=== PATIENT | male | born 1970 ===

== ENCOUNTER 2018-07-31 01:47 | Emergency (ER) | payer OTHER ==
[2018-07-31 01:58] VITALS: BP 132/88; PULSE 80; TEMP 97.4; BMI 27.4
--- NOTE | 2018-07-31 02:06 | PDOC ---
History of Present Illness - General Chief Complaint: Pain Stated Complaint: PAIN Time Seen by Provider: 07/31/18 02:05 - History of Present Illness Initial Comments: This 48-year-old man with a history of hyperlipidemia and strong family history of coronary artery disease presents with episode of burning substernal chest pain that awakened him tonight. Patient states that approximately 1 AM, he is awakened feeling of burning in his mid chest. It appears to have resolved spontaneously after he sat up, lasting approximately 10-15 minutes. During that time, his gave him an aspirin tablet. He denies shortness of breath/ diaphoresis during the episode. He had mild nausea associated with the pain. He currently does not have any of this substernal pain. For the last 2 days, the patient has experienced pain with movement around the left scapula; he also has similar movement associated pain in the left upper anterior chest for the same period of time. Patient believes that the latter 2 areas of pain are secondary to carrying luggage during a business trip 3 days ago. Patient states that he had a cardiac stress test earlier this year which was reportedly normal. Cardiac risk factors: Positive hyperlipidemia/family history; no smoking/ hypertension/diabetes/obesity Patient does not have any risk factors for acute thromboembolic disease except for frequent air travel. His business trip 3 days ago was to [place] ( approximately 2 [address] ride). No history of lower extremity edema or pain.No FH of DVT/PE.No recent surgery/malignancy Past History - Past Medical History Allergies/Adverse Reactions: Allergies Allergy/AdvReac Type Severity Reaction Status Date / Time No Known Allergies Allergy Unverified 07/31/18 01:48 EST Home Medications: Ambulatory Orders Ezetimibe 10 mg PO DAILY 07/31/18 Rosuvastatin [Crestor -] 5 mg PO HS 07/31/18 COPD: No Hypercholesterolemia: Yes - Suicide/Smoking/Psychosocial Hx Smoking History: Never smoked Review of Systems - Review of Systems Able to Perform ROS?: Yes Comments:: 12 point review of systems is negative except for what is noted in the history of present illness *Physical Exam - Vital Signs Last Vital Signs Temp Pulse Resp BP Pulse Ox 97.4 F L 80 16 132/88 99 07/31/18 01:51 EST 07/31/18 01:51 EST 07/31/18 01:51 EST 07/31/18 01:51 EST 07/31/18 01:51 EST - Physical Exam Comments: GENERAL: Adult male, alert and oriented 3, in no acute distress HEAD: Normal with no signs of trauma. EYES: PERRLA, EOMI, sclera anicteric, conjunctiva clear. ENT: Ears normal, nares patent, oropharynx clear without exudates. Moist mucous membranes. NECK: Normal range of motion, supple without lymphadenopathy, JVD, or masses. LUNGS: Breath sounds equal, clear to auscultation bilaterally. No wheezes, and no crackles. CHEST WALL: No tenderness/crepitus HEART:Regular rate and rhythm, normal S1 and S2 without murmur, rub or gallop. ABDOMEN:.normal bowel sounds No guarding,tenderness or rebound.No masses No distention. EXTREMITIES: Normal range of motion, no edema. No clubbing or cyanosis. No erythema, or tenderness. NEUROLOGICAL: Cranial nerves II through XII grossly intact. Normal speech. No focal neurological deficits. MUSCULOSKELETAL: Back non-tender to palpation, no CVA tenderness SKIN: Warm, Dry, normal turgor, no rashes or lesions noted. 12 12-lead electrocardiogram is performed interpreted by me: This reveals normal sinus rhythm at 76 bpm; wave forms, axis, intervals are all normal. No evidence of acute ST or T-wave abnormalities. No evidence of cardiac arrhythmia. Heart Score/ECG Review - History History: Slightly suspicious - Electrocardiogram EKG: Normal - Age Age: 45-65 - Risk Factors Risk Factors Heart Score: Yes Hx Hypercholesterolemia, Yes Positive family hx of cardiac disease Based on the list above the patient has:: 1-2 risk factors - Troponin Troponin: </= normal limit - Score Heart Score - Total: 2 ED Treatment Course - LABORATORY CBC & Chemistry Diagram: 07/31/18 02:55 07/31/18 02:55 Medical Decision Making - Medical Decision Making Patient continued to be comfortable throughout the night without recurrence of any chest pain or development of new symptoms. Blood samples were considerably lipemic according to lab personnel. Therefore, interpretation of the results were delayed. However, troponin was not elevated and the remainder of his labs were not significantly abnormal (calcium was 7.2 ; calcium levels are known to be distorted in lipemic samples) Patient was discharged with instructions to return to the emergency room if he had recurrent chest pain or develops shortness of breath/diaphoresis/nausea or palpitations. He will follow-up with his general doctor. He was given referral information for business segment manager on-call (Ailyn gonzalez) for further follow-up 08/01/18 00:41 *DC/Admit/Observation/Transfer Diagnosis at time of Disposition: Atypical chest pain - Discharge Dispostion Disposition: HOME Condition at time of disposition: Stable - Referrals - Patient Instructions Printed Discharge Instructions: DI for Atypical Chest Pain Additional Instructions: Continue medications as prescribed Return to ER if you have persistent chest pain/shortness of breath/palpitations Follow-up with your general doctor/enrollment manager or consult business segment manager as discussed - Post Discharge Activity
[2018-07-31 04:24] LABS: EOS % 6.2 % (0-4.5); HEMOGLOBIN 15.6 GM/dL (11.7-16.9); MEAN CELL VOLUME 84.3 fl (80-96); MEAN PLT VOLUME 9.3 fl (7.5-11.1); MONO % 6.3 % (3.8-10.2); NEUT % 53.5 % (42.8-82.8); PLATELET COUNT 206 K/MM3 (134-434); RBC 4.87 M/mm3 (4.00-5.60); RDW 12.5 % (11.9-15.9); WHITE BLOOD COUNT 8.3 K/mm3 (4.0-10.0)
[2018-07-31 04:56] LABS: ALBUMIN 3.7 g/dl (3.4-5.0); ALK PHOS 99 U/L (45-117); ANION GAP 6 MMOL/L (8-16); BILIRUBIN,TOTAL 0.9 mg/dL (0.2-1); BLOOD UREA NITROGEN 16 mg/dL (7-18); CALCIUM 7.2 mg/dL (8.5-10.1); CHLORIDE 104 mmol/L (98-107); CO2 26 mmol/L (21-32); CREATININE 1.1 mg/dL (0.55-1.3); GLUCOSE,RANDOM 137 mg/dL (74-106); SODIUM 136 mmol/L (136-145); TOT PROT 6.7 g/dl (6.4-8.2)
[2018-07-31 06:47] LABS: SGPT/ALT 89 U/L (13-61)
[2018-07-31 06:59] LABS: SGOT/AST 48 U/L (15-37)
--- NOTE | 2018-08-01 10:37 | EKG ---
Test Reason : Blood Pressure : / mmHG Vent. Rate : 076 BPM Atrial Rate : 076 BPM P-R Int : 140 ms QRS Dur : 086 ms QT Int : 368 ms P-R-T Axes : 070 060 043 degrees QTc Int : 414 ms NORMAL SINUS RHYTHM NORMAL ECG NO PREVIOUS ECGS AVAILABLE Confirmed by KEV STOREY MD ([id number]) on 08/01/2018 10:37:07 AM Referred By: YULIYA Confirmed By:KEV STOREY MD
== END 2018-07-31 05:37 | disposition home or self-care (01) ==
LOC: FER 01:47
DX: R07.89 Other chest pain (principal)
CPT/HCPCS: 36415; 80053; 82550; 82553; 84484; 85025; 93005; 99282-25